=== PATIENT | female | born 1970 | race Caucasian/White ===

== ENCOUNTER 2017-03-20 09:44 | Emergency (ER) | payer OTHER ==
[2017-03-20] MEDS ORDERED: HYDROcod/ACETAM 5/325 MG TABLET PO STA (11:50)
[2017-03-20] MEDS ORDERED: LIDOCAINE PATCH 5% TOP STA (11:50)
[2017-03-20] MEDS ORDERED: DEXAMETHASONE 10 MG/ML VIAL PO STA (11:50)
--- NOTE | 2017-03-20 12:17 | ED Physician Documentation ---
History of Present Illness - Stated complaint Stated Complaint: BACK/HIP PX - Chief complaint Chief Complaint: Back Pain - Additonal information Additional information: hx from pt insidious inset R low back pain rad to R hip region no fever no meds or drugs via needles no dental work / surgery no CP no AP no urinary sx denies preg no numbness or weakness Review of Systems Constitutional: denies: Fever, Chills Throat: denies: Sore throat Cardiac: denies: Chest pain / pressure Respiratory: denies: Dyspnea GI: denies: Abdominal Pain : denies: Dysuria, Incontinent, Now EGA Musculoskeletal: reports: Back pain, Extremity pain Endocrine: denies: Easy bruising / bleeding Immunocompromised: denies: Immunocompromised PD PAST MEDICAL HISTORY - Present Medications Home Medications: Ambulatory Orders Medication Instructions Recorded Confirmed Lidocaine Patch 5% [Lidoderm Patch] 1 each TOP DAILY PRN #10 patch 03/20/17 Mometasone Furoate [Nasonex] 2 spray IN DAILY 03/20/17 03/20/17 Zolmitriptan [Zomig] 2.5 mg PO PRN PRN 03/20/17 03/20/17 predniSONE [Deltasone] 40 mg PO DAILY 5 Days 03/20/17 - Allergies Allergies/Adverse Reactions: Allergies Allergy/AdvReac Type Severity Reaction Status Date / Time codeine Allergy Intermediate Emesis Verified 03/20/17 10:03 ciprofloxacin [From Cipro] Allergy Unknown Verified 03/20/17 10:03 ciprofloxacin HCl * Allergy Unknown Verified 03/20/17 10:03 [From Cipro] sulfamethoxazole Allergy Unknown Verified 03/20/17 10:03 [From Septra] trimethoprim [From Septra] Allergy Unknown Verified 03/20/17 10:03 PD ED PE NORMAL - Vitals Vital signs reviewed: Yes - General General: Alert and oriented X 3 - HEENT HEENT: PERRL - Neck Neck: Supple, no meningeal sign - Cardiac Cardiac: RRR - Respiratory Respiratory: No respiratory distress, Clear bilaterally - Abdomen Abdomen: Soft, Non tender, Other (no pulsatile mass, no RLQ TTP) - Derm Derm: Normal color - Neuro Neuro: Other (nl sensation, hip flexion knee ext foot dorsi plantar an dgreat toe ext all 5/5 except mildly limited by pain, patellar DTR 2/4 crystal no clonus) Results - Vitals Vitals: Vital Signs - 24 hr 03/20/17 03/20/17 09:55 12:41 Temperature 36.7 C 36.1 C L Heart Rate 90 88 Respiratory 16 20 Rate Blood Pressure 154/88 H 159/92 H O2 Saturation 99 95 Oxygen O2 Source Room air - Rads (name of study) pelvis Radiology: See rad report (neg) Departure - Departure Disposition: 01 Home, Self Care Clinical Impression: Back pain Qualifiers: Back pain location: low back pain Chronicity: acute Back pain laterality: right Sciatica presence: with sciatica Sciatica laterality: sciatica of right side Qualified Code(s): M54.41 - Lumbago with sciatica, right side Sciatica Qualifiers: Laterality: right Qualified Code(s): M54.31 - Sciatica, right side Instructions: ED Sciatica Prescriptions: predniSONE [Deltasone] 40 mg PO DAILY 5 Days Lidocaine Patch 5% [Lidoderm Patch] 1 each TOP DAILY PRN #10 patch PRN Reason: Pain Comments: The xray is fine I am not sure why the pain started without any injury or lifting but it seems like sciatica. The steroids will help decrease inflammation of the sciatic nerve and thus ease your pain And you can apply the lidocaine patch directly to the area of the back that hurts the most If new or different symptoms develop please see your PMD or come back to the ED And please get your blood pressure rechecked - it was high today
[2017-03-20] MEDS ORDERED: LIDOCAINE PATCH 5% TOP ONE (12:38)
[2017-03-20] MEDS ORDERED: HYDROcod/ACETAM 5/325 MG TABLET ONE (12:38)
[2017-03-20] MEDS ORDERED: DEXAMETHASONE 10 MG/ML VIAL ONE (12:38)
--- NOTE | 2017-03-20 12:49 | XRAY Preliminary Report ---
Exam: XR Pelvis 1 View IMPRESSION: Negative pelvis radiography. [facility] SITE ID: [id number]
--- NOTE | 2017-03-20 12:52 | XRAY Report ---
EXAM: PELVIS RADIOGRAPHY EXAM DATE: 03/20/2017 12:13 PM. CLINICAL HISTORY: Insidious onset R SI jt pain rad to RLE. COMPARISON: None available. TECHNIQUE: 1 view. FINDINGS: Bones: Normal. No fracture or bone lesion. Joints: The visualized hip, pubis symphysis, and sacroiliac joints are preserved. No subluxation. Soft Tissues: Pelvic phleboliths are present. No soft tissue swelling. IMPRESSION: Negative pelvis radiography. [facility] Referring Provider Line: [phone] SITE ID: [id number]
[2017-03-20 13:20] VITALS: BP 143/95
== END 2017-03-20 13:27 | disposition home or self-care (01) ==
LOC: ED 09:44
DX: M54.41 Lumbago with sciatica, right side (principal); R03.0 Elevated blood-pressure reading, without diagnosis of hypertension
CPT/HCPCS: 72170; 99283; A9270

== ENCOUNTER 2018-09-03 15:35 | Emergency (ER) | payer OTHER ==
[2018-09-03] MEDS ORDERED: KETOROLAC 30 MG/ML VIAL IVP STA (16:10)
[2018-09-03] MEDS ORDERED: MORPHINE 10 MG/ML VIAL IVP STA (16:10)
[2018-09-03] MEDS ORDERED: SODIUM CHLORIDE 0.9% 1,000 ML IV ONE (16:10)
[2018-09-03 16:18] LABS: ALBUMIN/GLOBULIN RATIO 1.1 (1.0-2.2); BASOPHILS # (AUTO) 0.1 10^3/uL (0.0-0.1); BASOPHILS % (AUTO) 0.5 %; BILIRUBIN,TOTAL 0.7 mg/dL (0.2-1.0); CALCIUM 8.7 mg/dL (8.5-10.3); CREATININE 0.6 mg/dL (0.4-1.0); EOSINOPHILS % (AUTO) 0.2 %; HGB - HEMOGLOBIN 13.3 g/dL (12.0-16.0); LYMPHOCYTES % (AUTO) 14.2 %; MEAN CORPUSCULAR HEMOGLOBIN 26.4 pg (27.0-31.0); MEAN CORPUSCULAR HGB CONC 32.6 g/dL (32.0-36.0); MEAN CORPUSCULAR VOLUME 81.1 fL (81.0-99.0); MEAN PLATELET VOLUME 7.9 fL (7.9-10.8); MONOCYTES # (AUTO) 0.8 10^3/uL (0.0-1.0); MONOCYTES % (AUTO) 5.6 %; NEUTROPHILS # (AUTO) 11.1 10^3/uL (1.5-6.6); NEUTROPHILS % (AUTO) 79.5 %; PLT - PLATELET COUNT 317 10^3/uL (130-450); RED BLOOD COUNT 5.03 10^6/uL (4.20-5.40); RED CELL DISTRIBUTION WIDTH 15.2 % (12.0-15.0); TOTAL PROTEIN 7.6 g/dL (6.7-8.2); WHITE BLOOD COUNT 13.9 x10^3/uL (4.8-10.8)
[2018-09-03] MEDS ORDERED: IOVERSOL 320 100 ML VIAL IVP ONE ×2 (16:22→17:01)
[2018-09-03 16:33] LABS: GLUCOSE, URINE (UA) NEGATIVE (NEGATIVE); KETONES,URINE (UA) 15 mg/dL (NEGATIVE); LEUKOCYTE ESTERASE, URINE NEGATIVE (NEGATIVE); NITRITE,URINE NEGATIVE (NEGATIVE); OCCULT BLOOD,URINE MODERATE (NEGATIVE); PROTEIN,URINE 30 mg/dL (NEGATIVE); UROBILINOGEN,URINE 0.2 (NORMAL) E.U./dL (NORMAL)
[2018-09-03 16:35] LABS: BACTERIA,URINE None Seen /HPF (None Seen); BILIRUBIN,URINE NEGATIVE (NEGATIVE); CLARITY,URINE CLEAR (CLEAR); ICTOTEST,URINE NEGATIVE; MUCUS,URINE Moderate Strands; RBC,URINE 0-5 /HPF (0-5); SQUAMOUS EPITHELIAL CELL,UR MOD Squamous (<= Few)
--- NOTE | 2018-09-03 17:21 | CT Report ---
Reason: left abd pain and bloody diarrhea for 2 days Procedure Date: 09/03/2018 Accession Number: [id number] / [id number] Procedure: CT - Abdomen/Pelvis W CPT Code: FULL RESULT: EXAM: CT ABDOMEN AND PELVIS EXAM DATE: 09/03/2018 04:52 PM. CLINICAL HISTORY: Left abd pain and bloody diarrhea for 2 days. COMPARISONS: None. TECHNIQUE: Routine helical CT imaging was performed through the abdomen and pelvis. IV contrast: opti 320 90 ml. Enteric contrast: No. Reconstructions: Coronal and sagittal. In accordance with CT protocol optimization, one or more of the following dose reduction techniques were utilized for this exam: automated exposure control, adjustment of mA and/or KV based on patient size, or use of iterative reconstructive technique. FINDINGS: Lung Bases: Unremarkable. Liver: Normal. No masses. Gallbladder/Bile Ducts: Unremarkable. Spleen: Normal. Pancreas: Normal. Adrenal Glands: Normal. Kidneys: Normal. No masses or hydronephrosis. Peritoneal Cavity/Bowel: No pneumoperitoneum. Normal caliber bowel loops without signs of obstruction. Wall thickening with hyperemia and surrounding fat stranding affecting the mid transverse colon through the descending colon is consistent with nonspecific colitis. No evidence for pneumatosis. Appendix appears normal. Mild ascites is noted in the left abdomen and pericolic gutter. Pelvic Organs: Normal. The bladder and visualized pelvic organs are within normal limits. Vasculature: No aneurysms or other significant abnormality. Bones: No significant abnormality. Other: None. IMPRESSION: 1. Nonspecific colitis affecting the mid transverse colon through the descending colon, possibly infectious. No evidence for pneumatosis of bowel. No pneumoperitoneum. 2. Normal caliber bowel loops without evidence for obstruction. [facility]
[2018-09-03] MEDS ORDERED: cefTRIAXone 1 GM VIAL IVP STA (17:31)
[2018-09-03] MEDS ORDERED: HYDROmorphone 2 MG/ML VIAL IVP STA (17:32)
[2018-09-03] MEDS ORDERED: metroNIDAZOLE 250 MG TABLET PO STA (17:32)
[2018-09-03] MEDS ORDERED: ONDANSETRON 4 MG/2 ML VIAL IVP STA (18:00)
--- NOTE | 2018-09-03 18:00 | ED Physician Documentation ---
PD HPI ABD PAIN - Stated complaint Stated Complaint: ABD PX/DIARRHEA - Chief complaint Chief Complaint: Abd Pain - History obtained from History obtained from: Patient - History of Present Illness Timing - onset: How many days ago (2) Timing - duration: Days (2) Timing - details: Abrupt onset, Still present Quality: Cramping, Aching Location: LUQ, LLQ Radiation: No: Left flank Improved by: No: Eating Worsened by: Eating Associated symptoms: Nausea, Diarrhea (with some blood to it today). No: Fever, Vomiting Similar symptoms before: Has not had sx before Recently seen: Clinic (seen by PCP recently and Rx Lisinopril for HTN. started it few days ago and had onset of the cramps and diarrhea. Did not take the lisinopril yesterday nor today. No prior similar sympotms.) Review of Systems Constitutional: denies: Fever, Chills, Myalgias Nose: denies: Rhinorrhea / runny nose, Congestion Throat: denies: Oral lesions / sores, Sore throat Cardiac: denies: Chest pain / pressure Respiratory: denies: Cough GI: reports: Abdominal Pain, Nausea, Diarrhea, Bloody / black stool. denies: Abdominal Swelling, Vomiting : denies: Dysuria, Frequency Neurologic: denies: Near syncope PD PAST MEDICAL HISTORY - Past Medical History Past Medical History: Yes Cardiovascular: Hypertension Respiratory: None Neuro: None GI: None - Past Surgical History Past Surgical History: No - Present Medications Home Medications: Ambulatory Orders Medication Instructions Recorded Confirmed Mometasone Furoate [Nasonex] 2 spray IN DAILY 03/20/17 09/03/18 Zolmitriptan [Zomig] 2.5 mg PO PRN PRN 03/20/17 09/03/18 Amox/Clav 875/125 [Augmentin] 1 each PO Q12H #14 tablet 09/03/18 Azelastine HCl 137 mcg NS DAILY 09/03/18 09/03/18 Fexofenadine HCl 180 mg PO DAILY 09/03/18 09/03/18 Lisinopril 20 mg PO DAILY 09/03/18 09/03/18 Montelukast [Singulair] 10 mg PO QPM 09/03/18 09/03/18 Naproxen 375 mg PO BID #20 tablet 09/03/18 Norethindrone-Ethinyl Estrad 1 each PO DAILY 09/03/18 09/03/18 [Ortho-Novum 7-7-7-28 Tablet] Ondansetron Odt [Zofran] 4 mg TL Q6H PRN #10 tablet 09/03/18 Tramadol HCl 50 mg PO Q6H PRN #15 tablet 09/03/18 - Allergies Allergies/Adverse Reactions: Allergies Allergy/AdvReac Type Severity Reaction Status Date / Time codeine Allergy Intermediate Emesis Verified 03/20/17 10:03 ciprofloxacin [From Cipro] Allergy Unknown Verified 03/20/17 10:03 ciprofloxacin HCl * Allergy Unknown Verified 03/20/17 10:03 [From Cipro] sulfamethoxazole Allergy Unknown Verified 03/20/17 10:03 [From Septra] trimethoprim [From Septra] Allergy Unknown Verified 03/20/17 10:03 - Social History Does the pt smoke?: No Smoking Status: Never smoker Does the pt drink ETOH?: Yes Does the pt have substance abuse?: No - Immunizations Immunizations are current?: Yes - POLST Patient has POLST: No PD ED PE NORMAL - Vitals Vital signs reviewed: Yes - General General: Alert and oriented X 3, Well developed/nourished - HEENT HEENT: Pharynx benign - Neck Neck: Supple, no meningeal sign, No adenopathy - Cardiac Cardiac: RRR, No murmur - Respiratory Respiratory: Clear bilaterally - Abdomen Abdomen: Normal bowel sounds, Soft, Non distended, No organomegaly, Other (tender left side LUQ/LLQ with focal guarding, no percussion nor rebound tenderness. ) - Female Female : Deferred - Rectal Rectal: Deferred - Back Back: No CVA TTP - Derm Derm: Normal color, Warm and dry - Neuro Neuro: Alert and oriented X 3, No motor deficit, Normal speech Results - Vitals Vitals: Oxygen O2 Source Room air - Labs Labs: Laboratory Tests 09/03/18 09/03/18 09/03/18 16:00 16:00 16:15 WBC 13.9 H RBC 5.03 Hgb 13.3 Hct 40.8 MCV 81.1 MCH 26.4 L MCHC 32.6 RDW 15.2 H Plt Count 317 MPV 7.9 Neut # (Auto) 11.1 H Lymph # (Auto) 2.0 [place] # (Auto) 0.8 Eos # (Auto) 0.0 Baso # (Auto) 0.1 Absolute Nucleated RBC 0.00 Nucleated RBC % 0.0 Sodium 133 L Potassium 3.4 L Chloride 101 Carbon Dioxide 22 Anion Gap 10.0 BUN 11 Creatinine 0.6 Estimated GFR (MDRD) 106 Glucose 112 H Calcium 8.7 Total Bilirubin 0.7 AST 22 ALT 20 Alkaline Phosphatase 41 L Total Protein 7.6 Albumin 4.0 Globulin 3.6 Albumin/Globulin Ratio 1.1 Lipase 24 Urine Color YELLOW Urine Clarity CLEAR Urine pH 6.0 Ur Specific [place] 1.025 Urine Protein 30 H Urine Glucose (UA) NEGATIVE Urine Ketones 15 H Urine Occult Blood MODERATE H Urine Nitrite NEGATIVE Urine Bilirubin NEGATIVE Urine Urobilinogen 0.2 (NORMAL) Ur Leukocyte Esterase NEGATIVE Urine RBC 0-5 Urine WBC 0-3 Ur Squamous Epith Cells MOD Squamous H Urine Bacteria None Seen Urine Mucus Moderate Strands Ur Microscopic Review INDICATED Urine Culture Comments NOT INDICATED - Rads (name of study) abd CT Radiology: Prelim report reviewed (area of focal colitis), See rad report PD MEDICAL DECISION MAKING - ED course Complexity details: reviewed results (CT showing likely segment of infectious colitis. ), re-evaluated patient, considered differential (would seem unusual side effect of lisinopril, though diarrhea is listed in [facility] and [facility]. Presume would have triggered an infectious colitis though, and with her symptoms, concern for coincidental or related diverticulitis/perf/etc, so got CT scan. ), d/w patient Departure - Departure Disposition: 01 Home, Self Care Clinical Impression: Colitis, acute, Medication side effect Condition: Stable Record reviewed to determine appropriate education?: Yes Follow-Up: Veda Blackwell, [employer] [Primary Care Provider] - Prescriptions: Amox/Clav 875/125 [Augmentin] 1 each PO Q12H #14 tablet Naproxen 375 mg PO BID #20 tablet Ondansetron Odt [Zofran] 4 mg TL Q6H PRN #10 tablet PRN Reason: Nausea / Vomiting Tramadol HCl 50 mg PO Q6H PRN #15 tablet PRN Reason: Pain Comments: Stay well-hydrated. Tylenol for mild pains. Add tramadol for worse pain. Aug mentin antibiotic twice daily for a week for the colitis infection. Hold your blood pressure medicine until discussed with your primary care. The timing of it seems suspect and the drug reference does say that diarrhea can be associated with the lisinopril. It would have needed to have triggered a more inflammatory or infectious colitis which is now your bigger symptoms. Use some anti-inflammatories such as naproxen twice daily. Recheck if not improved over the next 2-3 days. Discharge Date/Time: 09/03/18 19:31
[2018-09-03] MEDS ORDERED: ONDANSETRON ODT 4 MG Prepack 2 TL PRN (18:02)
[2018-09-03] MEDS ORDERED: HYDROcod/ACET 5/325 Prepack 4 PO STA (18:02)
[2018-09-03] MEDS ORDERED: PROMETHAZINE INJ 12.5 MG in SODIUM CHLORIDE 0.9% 50 ML IV STA (18:42)
[2018-09-03 18:56] VITALS: BP 143/91
== END 2018-09-03 19:31 | disposition home or self-care (01) ==
LOC: ED 15:35
DX: K52.1 Toxic gastroenteritis and colitis (principal); T46.4X5A Adverse effect of angiotensin-converting-enzyme inhibitors, initial encounter; I10 Essential (primary) hypertension
CPT/HCPCS: 36415; 74177; 80053; 81001; 83690; 85025; 96361; 96365; 96375; 99283; 99284; A9270; J1170; J7040; Q9967; 81003; 87086

== ENCOUNTER 2021-05-25 10:55 | Outpatient (CLI) | payer OTHER ==
--- NOTE | 2021-05-26 14:08 | Mammography Report ---
BILATERAL DIGITAL SCREENING MAMMOGRAM 3D/2D: 05/25/2021 CLINICAL: Routine screening. Comparison is made to exams dated: 10/12/2016 mammogram, 05/19/2015 mammogram, 10/10/2012 mammogram, an d 09/29/2010 mammogram - [facility]. There are scattered fibroglandular elements in both matty asts. No significant masses, calcifications, or other findings are seen in either breast. There has been no significant interval change. IMPRESSION: NEGATIVE There is no mammographic evidence of malignancy. A 1 year screening mammogram is recommended. This exam was interpreted at Station ID: [id number]. NOTE: For mammograms, a report in lay terms will be sent to the patient. Approximately 15% of breast malignancies will not be visualized mammographically. In the management of a palpable breast mass, a negative mammogram must not discourage biopsy of a clinically suspicious lesion. Electronically Signed By: Marcial Brunner M.D., jr/amos:05/25/2021 12:33:24 ACR BI-RADS Category 1: Negative [id number] PARENCHYMAL PATTERN: (A) - The breast(s) demonstrate(s) scattered fibroglandular densities. BI-RADS CATEGORY: (1) - 1 RECOMMENDATION: (ANNUAL) - Recommend routine annual screening mammography. [id number] 1 year screening LATERALITY: (B)
== END 2021-05-25 10:56 | disposition home or self-care (01) ==
LOC: DI.N 10:55
DX: Z12.31 Encounter for screening mammogram for malignant neoplasm of breast (principal)